=== PATIENT | female | born 1965 | race Two or more races ===

== ENCOUNTER 2024-04-29 12:28 | Emergency (ER) | payer MEDICAID ==
[~2024-04-29] VITALS: Ht 142.2 cm; Wt 59.4 kg
[2024-04-29] MEDS ORDERED: ALBUTEROL FS 2.5 MG/3 ML VIAL.NEB ONE (13:50)
[2024-04-29] MEDS: ALBUTEROL FS 2.5 MG/3 ML VIAL.NEB NEB ONE (13:51)
[2024-04-29 13:53] VITALS: O2SAT 96
[2024-04-29 14:05] VITALS: O2SAT 100
[2024-04-29] MEDS ORDERED: ALBU18HF2 INH (14:05)
[2024-04-29] MEDS ORDERED: PRED50TA PO (14:05)
[2024-04-29] MEDS ORDERED: AZIT250T13 PO (14:05)
[2024-04-29 14:22] VITALS: BP 128/75; TEMP 98.8; O2SAT 100
== END 2024-04-29 14:23 | disposition home or self-care (01) ==
LOC: ER 12:50
DX: S93.402A Sprain of unspecified ligament of left ankle, initial encounter (principal); J45.909 Unspecified asthma, uncomplicated; Z60.2 Problems related to living alone; X50.1XXA Overexertion from prolonged static or awkward postures, initial encounter; Y93.89 Activity, other specified; Y92.89 Other specified places as the place of occurrence of the external cause; Y99.8 Other external cause status
CPT/HCPCS: 73610-TC